=== PATIENT | female | born 1985 | race American Indian/Alaskan Native ===

== ENCOUNTER 2016-11-23 17:50 | Emergency (ER) | payer SELFPAY | END 2016-11-23 18:20 | disposition left against medical advice (07) | LOC: ED 17:50 | DX: M54.2 Cervicalgia (principal); Z53.21 Procedure and treatment not carried out due to patient leaving prior to being seen by health care provider ==

== ENCOUNTER 2020-02-21 17:06 | Emergency (ER) | payer OTHER ==
[2020-02-21 18:12] VITALS: BP 110/76
--- NOTE | 2020-02-21 19:30 | XRay Report ---
LEFT HAND 3 VIEWS INDICATION / CLINICAL INFORMATION: Hand pain and swelling. COMPARISON: None available. FINDINGS: BONES / JOINT(S): Comminuted fractures involving the shaft of the third and fourth metacarpals are re latively well aligned. No significant arthritis. SOFT TISSUES: No significant abnormality. ADDITIONAL FINDINGS: None. Signer Name: Ryan Stern MD Signed: 02/21/2020 7:29 PM Workstation Name: [id number]
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
[2020-02-21] MEDS ORDERED: ONDANSETRON 4 MG ODT TAB PO STA (19:35)
[2020-02-21] MEDS ORDERED: oxyCODONE /ACETAMINOPHEN 5-325MG TAB PO ONE (19:35)
== END 2020-02-21 20:30 | disposition home or self-care (01) ==
LOC: ED 17:06
DX: S62.323A Displaced fracture of shaft of third metacarpal bone, left hand, initial encounter for closed fracture (principal); S62.325A Displaced fracture of shaft of fourth metacarpal bone, left hand, initial encounter for closed fracture; Z79.899 Other long term (current) drug therapy; V49.49XA Driver injured in collision with other motor vehicles in traffic accident, initial encounter; Y93.89 Activity, other specified; Y92.488 Other paved roadways as the place of occurrence of the external cause; Y99.8 Other external cause status
CPT/HCPCS: Q0162